=== PATIENT | male | born 1975 | race Hispanic/Latino ===

== ENCOUNTER → 2025-03-23 07:16 | Outpatient (REF) | payer OTHER, SELFPAY ==
[2025-03-23 09:06] LABS: Vitamin D, 25-OH*** 29.1 ng/mL (30-80)
[2025-03-23 09:08] LABS: ALT (SGPT) 43 U/L (0-50); AST (SGOT) 27 U/L (17-59); Albumin 4.3 g/dl (3.5-5.0); Alkaline Phosphatase 58 U/L (38-126); Blood Urea Nitrogen 12 mg/dl (9-20); Calcium 9.2 mg/dl (8.4-10.2); Carbon Dioxide 29 mmol/L (22-30); Chloride 106 mmol/L (98-107); Glucose 94 mg/dl (70-99); HDL Cholesterol 43 mg/dl; LDL Cholesterol, Calculated 96 mg/dl; Potassium 4.2 mmol/L (3.5-5.1); Sodium 140 mmol/L (135-145); Total Protein 7.0 g/dl (6.3-8.2); Very Low Density Lipoprotein 14 mg/dl (0-30); eGFR > 60.00
[2025-03-23 11:06] LABS: Glycohemoglobin (HgbA1c) 6.9 % (4.0-5.6)
== END ==
LOC: CLINIC 07:16
PROVIDERS: ATTENDING PHYSICIAN Nurse Practitioner Adult Health
DX: E11.69 Type 2 diabetes mellitus with other specified complication (principal)
CPT/HCPCS: 36415; 80053; 80061; 82306; 83036

== ENCOUNTER → 2025-06-30 07:42 | Outpatient (REF) | payer OTHER, SELFPAY ==
[2025-06-30 09:34] LABS: Hematocrit 49.8 % (39.0-52.0); Hemoglobin 16.9 g/dL (13.0-18.0); Mean Corp Hgb Conc. 33.9 g/dL (33.0-37.0); Mean Corpuscular Volume 90.7 fL (80.0-94.0); Platelet Count 235 10^3/uL (130-400); Red Cell Dist. Width 12.2 % (11.5-14.5)
[2025-06-30 10:01] LABS: Glycohemoglobin (HgbA1c) 6.5 % (4.0-5.9)
[2025-06-30 10:23] LABS: ALT (SGPT) 47 U/L (0-50); AST (SGOT) 30 U/L (17-59); Albumin 4.3 g/dl (3.5-5.0); Alkaline Phosphatase 69 U/L (38-126); Blood Urea Nitrogen 15 mg/dl (9-20); Calcium 9.2 mg/dl (8.4-10.2); Carbon Dioxide 28 mmol/L (22-30); Chloride 105 mmol/L (98-107); Glucose 129 mg/dl (70-99); Potassium 4.2 mmol/L (3.5-5.1); Sodium 140 mmol/L (135-145); Total Protein 7.1 g/dl (6.3-8.2); eGFR > 60.00
[2025-06-30 10:36] LABS: Microalbumin, Random Urine 1.2 mg/dl (0.6-1.7)
== END ==
LOC: CLINIC 07:42
PROVIDERS: ATTENDING PHYSICIAN Nurse Practitioner Adult Health
DX: E11.69 Type 2 diabetes mellitus with other specified complication (principal); Z12.11 Encounter for screening for malignant neoplasm of colon
CPT/HCPCS: 36415; 80053; 82043; 82570; 83036; 85027

== ENCOUNTER → 2025-07-01 09:03 | Outpatient (REF) | payer OTHER, SELFPAY ==
[2025-07-03 13:37] LABS: FIT-Fecal Occult Blood Interp Negative
== END ==
LOC: CLINIC 09:03
PROVIDERS: ATTENDING PHYSICIAN Nurse Practitioner Adult Health
DX: Z12.11 Encounter for screening for malignant neoplasm of colon (principal)
CPT/HCPCS: 83520